=== PATIENT | male | born 1975 | race Two or more races ===

== ENCOUNTER 2020-02-06 09:39 | Inpatient (IN) | payer OTHER ==
--- NOTE | 2020-02-06 09:59 | BHS.RME ---
Substance Use & Tx History - Substance Use History Alcohol Substance amount: 05/26 Vodka Frequency of use: Daily Substance route: Oral Date of Last Use: 02/05/20 Marijuana/Hashish Substance amount: one blunt Frequency of use: Daily Substance route: Smoking Date of Last Use: 02/05/20 Nicotine Substance amount: one pack Frequency of use: Daily Substance route: Smoking Date of Last Use: 02/06/20 Physical/Psych/Mental Status - Behavior General Behavior: Increased activity (restlessness, agitation) Eye Contact: Normal - Cooperativeness Cooperativeness: Cooperative - Thinking Thought Processes: Tight Thought content: Future oriented - Physical Health Problems Is patient presently having any pain?: No Does patient presently have any injuries (include location): No Does patient currently have a fever: No CIWA Nausea/Vomitin Muscle Tremors: 3 Anxiety: 3 Agitation: 1-Slight > Activity Paroxysmal Sweats: 3 Orientation: 0-Oriented Tacttile Disturbances: 0-None Auditory Disturbances: 0-None Visual Disturbances: 0-None Headache: 0-None Present CIWA-Ar Total Score: 12
[2020-02-06 10:22] VITALS: BMI 18.7
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
[2020-02-06] MEDS ORDERED: ACETAMINOPHEN 325 MG TABLET (FP) PO PRN ×2 (10:37)
[2020-02-06] MEDS ORDERED: MAG HYDROX/AL HYDROX/SIMETH 30 ML UNIT-DOSE CUP PO PRN (10:37)
[2020-02-06] MEDS ORDERED: MENTHOL/PHENOL 1 EACH UD MM PRN (10:37)
[2020-02-06] MEDS ORDERED: BISMUTH SUBSALICYLATE 262 MG/15 ML BTL PO PRN (10:37)
[2020-02-06] MEDS ORDERED: METHOCARBAMOL 500 MG TABLET PO PRN (10:37)
[2020-02-06] MEDS ORDERED: chlordiazePOXIDE HCL 25 MG CAPSULE PO PRN (10:37)
[2020-02-06] MEDS ORDERED: MAGNESIUM HYDROX 2400MG/30ML ORAL SUSPENSION 30 ML CUP PO PRN (10:37)
[2020-02-06] MEDS ORDERED: MAGNESIUM CITRATE 300 ML BOTTLE PO PRN (10:37)
[2020-02-06] MEDS ORDERED: NICOTINE POLACRILEX 2 MG GUM BUC PRN (10:37)
[2020-02-06] MEDS ORDERED: IBUPROFEN 400 MG TABLET (FP) PO PRN (10:37)
[2020-02-06] MEDS ORDERED: ONDANSETRON *ODT* 4 MG TABLET SL PRN (10:37)
--- OUTSIDE RECORDS SUMMARY | 2020-02-06 10:39 | XMS ---
:1975 Author Organization [facility] Support Name Relationship Address Phone UE Unavailable Unavailable Unavailable RADHA GIRARD [address] [phone] [place] [address] Malik Santiago Unavailable Unavailable Unavailable Re-disclosure Warning The records that you are about to access may contain information from federally- assisted alcohol or drug abuse programs. If such information is present, then the following federally mandated warning applies: This information has been disclosed to you from records protected by federal confidentiality rules (42 CFR part 2). The federal rules prohibit you from making any further disclosure of this information unless further disclosure is expressly permitted by the written consent of the person to whom it pertains or as otherwise permitted by 42 CFR part 2. A general authorization for the release of medical or other information is NOT sufficient for this purpose. The Federal rules restrict any use of the information to criminally investigate or prosecute any alcohol or drug abuse patient.The records that you are about to access may contain highly sensitive health information, the redisclosure of which is protected by Article 27-F of the [facility] Public Health law. If you continue you may haveaccess to information: Regarding HIV / AIDS; Provided by facilities licensed or operated by the [facility] Office of Mental Health; or Provided by the [facility] Office for People With Developmental Disabilities. If such information is present, then the following [facility] mandated warning applies: This information has been disclosed to you from confidential records which are protected by state law. State law prohibits you from making any further disclosure of this information without the specific written consent of the person to whom it pertains, or as otherwise permitted by law. Any unauthorized further disclosure in violation of state law may result in a fine or shelter sentence or both. A general authorization for the release of medical or other information is NOT sufficient authorization for further disclosure. Allergies and Adverse Reactions Type Description Substance Reaction Status Data Source(s ) Drug allergy Penicillin G Drug allergy anaphylaxis Active eCW3 ([facility]) Drug allergy Penicillin G Drug allergy anaphylaxis Active eCW3 ([facility]) Drug allergy Penicillin G Drug allergy anaphylaxis Active eCW3 ([facility]) Drug allergy Penicillin G Drug allergy anaphylaxis Active eCW3 ([facility]) Drug allergy Penicillin G Drug allergy anaphylaxis Active eCW3 ([facility]) Encounters Encounter Providers Location Date Indications Data Source(s ) Outpatient [facility] 02/06/2019 eCW3 ([facility] 12:00:00 AM [facility] - [facility]) 02/06/2019 12:00:00 AM EDT Est [id number] [facility] 01/23/2019 eCW 3 ([facility] A28 12:00:00 AM [facility] EDT - Care) 01/23/2019 12:00:00 AM EDT (-Nursing) [facility] 01/23/2019 eCW3 ([facility] A28 12:00:00 AM [facility] EDT - Care) 01/23/2019 12:00:00 AM EDT Outpatient [facility] 08/16/2018 eCW3 ([facility] 12:00:00 AM [facility] - [facility]) 08/16/2018 12:00:00 AM EDT Outpatient [facility] 08/02/2018 eCW3 ([facility] A28 12:00:00 AM [facility] - [facility]) 08/02/2018 12:00:00 AM EDT Medications Medication Brand Start Product Dose Route Administrative Pharmacy [facility] Indications Reaction Description Data Name Date Form Instructions Instructions Source(s) Ergocalcife UNK .0 active Ergocalci shay eCW3 rol 1999 2018 {caps ol 2000 UNIT ([facility] UNIT 12:00: ule} [facility] 00 [facility] EDT Care) Ergocalcife UNK .0 active Ergocalci shay eCW3 rol 1999 2018 {caps ol 2000 UNIT ([facility] UNIT 12:00: ule} [facility] 00 AM [facility] EDT Care) Naltrexone Vivitr 4.0 active Vivitrol 3 80 eCW3 112 MG/ML ol 380 {ml} MG ([place] Injectable MG [facility] Suspension [facility] [Vivitrol] Care) Vivitrol 380 MG Naltrexone Vivitr 4.0 active Vivitrol 3 80 eCW3 112 MG/ML ol 380 {ml} MG ([place] Injectable MG [facility] [Vivitrol] Care) Vivitrol 380 MG Multivitami Multiv 1.0 active Multivita min eCW3 n Adult - itamin {tabl Adult - ([facility] Adult et} [facility] - Health Care) Paroxetine Paxil 1.0 active Paxil 20 MG eCW3 20 MG Oral 20 MG {tabl ([place] Tablet et_in [facility] [Paxil] _the_ Health Paxil 20 MG morni Care) ng} Ergocalcife Ergoca 1.0 active Ergocalci shay eCW3 rol 88976 lcifer {[place] [address] ([facility] [place] UNT Oral ol ule} UNIT [facility] Capsule 73668 Health Ergocalcife UNIT Care) rol 28255 UNIT Lurasidone Latuda 2.0 active Latuda 20 MG eCW3 Hydrochlori 20 MG {tabl ([place] de 20 MG ets_w [facility] Oral Tablet ith_f Health [Latuda] ood} Care) Latuda 20 MG Naltrexone Vivitr 4.0 active Vivitrol 3 80 eCW3 112 MG/ML ol 380 {ml} MG ([place] Injectable MG [facility] Susp[facility] [Vivitrol] Care) Vivitrol 380 MG Lurasidone Latuda 2.0 active Latuda 20 MG eCW3 Hydrochlori 20 MG {tabl ([place] de 20 MG ets_w [facility] Oral Tablet ith_f Health [Latuda] ood} Care) Latuda 20 MG Paroxetine Paxil 1.0 active Paxil 20 MG eCW3 20 MG Oral 20 MG {tabl ([place] Tablet et_in [facility] [Paxil] _the_ Health Paxil 20 MG morni Care) ng} Paroxetine Paxil 1.0 active Paxil 20 MG eCW3 20 MG Oral 20 MG {tabl ([place] Tablet et_in [facility] [Paxil] _the_ Health Paxil 20 MG morni Care) ng} Naltrexone Vivitr 4.0 active Vivitrol 3 80 eCW3 112 MG/ML ol 380 {ml} MG ([place] Injectable MG [facility] [Vivitrol] Care) Vivitrol 380 MG Daily Multi Daily active Daily Mult i eCW3 - Multi - ([facility]) Multivitami UNK active Multivitami n eCW3 n 1 1 ([facility]) Paroxetine Paxil 1.0 suspend Paxil 20 M G eCW3 20 MG Oral 20 MG {tabl ed ([place] Tablet et_in [facility] [Paxil] _the_ [facility] Paxil 20 MG morni Care) ng} Ergocalcife Ergoca 1.0 active Ergocalci shay eCW3 rol 41296 lcifer {[place] [address] ([facility] [place] UNT Oral ol ule} UNIT [facility] Capsule 63432 Health Ergocalcife UNIT Care) rol 60182 UNIT Multivitami Multiv 1.0 active Multivita min eCW3 n Adult - itamin {tabl Adult - ([facility] Adult et} [facility]) Multivitami UNK active Multivitami n eCW3 n 1 1 ([facility]) Multivitami Multiv 1.0 active Multivita min eCW3 n Adult - itamin {tabl Adult - ([facility] Adult et} [facility]) Daily Multi Daily active Daily Mult i eCW3 - Multi - ([facility]) Paroxetine Paxil 1.0 active Paxil 20 MG eCW3 20 MG Oral 20 MG {tabl ([place] Tablet et_in [facility] [Paxil] _the_ Health Paxil 20 MG morni Care) ng} Naltrexone Vivitr 4.0 active Vivitrol 3 80 eCW3 112 MG/ML ol 380 {ml} MG ([place] Injectable MG [place] Sus[facility]ension [facility] [Vivitrol] Care) Vivitrol 380 MG Naltrexone Vivitr 4.0 active Vivitrol 3 80 eCW3 112 MG/ML ol 380 {ml} MG ([place] Injectable MG [facility] [Vivitrol] Care) Vivitrol 380 MG Insurance Providers Payer name Policy type Policy ID Covered Covered libertarian's Policy P simran / Coverage libertarian ID relationship to [employer] Inf ormation type cantor BEACON [id number] SP [id number] [employer] Problems, Conditions, and Diagnoses Code Display Name Description Problem Type Effective Dates Data Source(s) F10.10 Alcohol abuse Alcohol abuse Problem 09/04/2019 eCW3 ([facility] 12:00:00 AM EDT [facility]) R76.12 Positive Positive Problem 05/29/2019 eCW3 ([place] QuantiFERON-TB QuantiFERON-TB 12:00:00 AM EST [facility] Gold test Gold test Care) 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 ([place] recurrent major recurrent major 12:00:00 AM [facility] depressive depressive Care) disorder, with disorder, with psychotic psychotic features features F33.3 Major depressive Major depressive Problem 04/01/2019 eC W3 ([place] disorder, disorder, 12:00:00 AM [facility] recurrent, severe recurrent, severe Care) with psychotic with psychotic symptoms symptoms Z72.0 Tobacco abuse Tobacco abuse Problem 01/23/2019 eCW3 ([facility] 12:00:00 AM [facility] Care) F12.10 Cannabis abuse Cannabis abuse Problem 01/23/2019 eCW3 ( [place] 12:00:00 AM [facility] Care) F10.11 Mild alcohol Mild alcohol Problem 01/23/2019 eCW3 ([place] abuse in early abuse [facility] 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 ([place] recurrent major recurrent major 12:00:00 AM [facility] depressive Care) disorder, with disorder, with psychotic psychotic features features F10.11 Mild alcohol Mild alcohol Problem 01/23/2019 eCW3 ([place] abuse in early abuse in early [facility] F12.10 Cannabis abuse Cannabis abuse Problem 01/23/2019 eCW3 ( [place] 12:00:00 AM [facility] Care) Z72.0 Tobacco abuse Tobacco abuse Problem 01/23/2019 eCW3 ([facility] 12:00:00 AM [facility] Care) F10.10 ETOH abuse ETOH abuse Problem 09/15/2017 eCW3 ([place] 12:00:00 AM [facility] Care) F10.10 ETOH abuse ETOH abuse Problem 09/15/2017 eCW3 ([place] 12:00:00 AM [facility] Care) F10.10 ETOH abuse ETOH abuse Problem 09/15/2017 eCW3 ([place] 12:00:00 AM [facility] Care) E55.9 Vitamin D Vitamin D Problem 09/28/2015 eCW3 ([place] deficiency deficiency 12:00:00 AM [facility] Care) E55.9 Vitamin D Vitamin D Problem 09/28/2015 eCW3 ([place] deficiency deficiency 12:00:00 AM [facility] Care) F32.9 Depression Depression Problem 09/21/2015 eCW3 ([place] 12:00:00 AM [facility] Care) Z68.1 BMI less than BMI less than Problem 09/21/2015 eCW3 ([facility] 19,adult 19,adult 12:00:00 AM [facility] Care) R63.0 Loss of appetite Loss of appetite Problem 09/21/2015 eC W3 ([place] 12:00:00 AM [facility] Care) F17.200 Smoking Smoking Problem 09/21/2015 eCW3 ([place] 12:00:00 AM [facility] Care) M25.512 Shoulder pain Left shoulder Problem 09/21/2015 eCW3 ([facility] pain 12:00:00 AM [facility] Care) R63.0 Loss of appetite Loss of appetite Problem 09/21/2015 eC W3 ([place] 12:00:00 AM [facility] Care) Z68.1 BMI less than BMI less than Problem 09/21/2015 eCW3 ([facility] 19,adult 19,adult 12:00:00 AM [facility] Care) F32.9 Depression Depression Problem 09/21/2015 eCW3 ([place] 12:00:00 AM [facility] Care) F17.200 Smoking Smoking Problem 09/21/2015 eCW3 ([place] 12:00:00 AM [facility] Care) R63.0 Loss of appetite Loss of appetite Problem 09/21/2015 eC W3 ([place] 12:00:00 AM [facility] Care) F32.9 Depression Depression Problem 09/21/2015 eCW3 ([place] 12:00:00 AM EDT [facility]) M25.512 Shoulder pain Left shoulder Problem 09/21/2015 eCW3 ([place] [facility] pain 12:00:00 AM [facility]) F17.200 Smoking Smoking Problem 09/21/2015 eCW3 ([place] 12:00:00 AM [facility]) Z68.1 BMI less than BMI less than Problem 09/21/2015 eCW3 ([facility] 19,adult 19,adult 12:00:00 AM [facility]) Surgeries/Procedures Procedure Description Date Indications Data Source(s) BEHAV CHNG SMOKING >10 08/16/2018 eCW3 ([place] MIN 12:00:00 AM [facility]) BEHAV CHNG SMOKING >10 08/02/2018 eCW3 ([place] MIN 12:00:00 AM [facility]) Results ID Date Data Source Vitamin D, 25- [place] Hydroxy 08/03/2018 09:05:44 AM EDT [facility]CW[facility][id number] Care) Name Value Range Interpretation Code Description Data Supporting Source(s) Document(s ) 25-Hydroxyv 37.0 Vitamin D, eCW3 ([place] itamin 25-Hydroxy [facility] D2+25-[place] Care) xyvitamin D3 [Mass/volum e] in Serum or Plasma Procedure Social History Code Duration Value Status Description Data Source(s ) Smoking 06/12/2019 Current Smoker completed Current Smoker eCW3 ( [place] 12:00:00 AM [facility]) Smoking 06/12/2019 Current Smoker completed Current Smoker eCW3 ( [place] 12:00:00 AM [facility]) Smoking 06/12/2019 Current Smoker completed Current Smoker eCW3 ( [place] 12:00:00 AM [facility]) Smoking 01/23/2019 Current Smoker completed Current Smoker eCW3 ( [place] 12:00:00 AM [facility]) Current Smoker completed Current Smoker eCW3 ( [facility]) Current Smoker completed Current Smoker eCW3 ( [facility]) Current Smoker completed Current Smoker eCW3 ( [facility]) Current Smoker completed Current Smoker eCW3 ( [facility]) Smoking Unknown if ever completed Unknown if ever eCW3 ([facility]) Vital Signs ID Date Data Source UNK Name Value Range Interpretation Code Description Data Source(s) Diastolic blood 82 mm[Hg] 82 mm[Hg] eCW3 ([facility]) Systolic blood 134 mm[Hg] 134 mm[Hg] eCW3 ([facility]) Body temperature 97.4 [degF] 97.4 [degF] eCW3 ( [facility]) Heart rate 18 /min 18 /min eCW3 ([facility]) Body mass index 19.49 kg/m2 19.49 kg/m2 eCW3 ([facility] (BMI) [Ratio] [facility]) Body weight 132 [lb_av] 132 [lb_av] eCW3 ([facility]) Body height [in_i] eCW3 ([facility]) Diastolic blood 88 mm[Hg] 88 mm[Hg] eCW3 ([facility]) Systolic blood 131 mm[Hg] 131 mm[Hg] eCW3 ([facility]) Body temperature 97.9 [degF] 97.9 [degF] eCW3 ( [facility]) Heart rate 18 /min 18 /min eCW3 ([facility]) Body mass index 19.49 kg/m2 19.49 kg/m2 eCW3 ([facility] (BMI) [Ratio] [facility]) Body weight 132 [lb_av] 132 [lb_av] eCW3 ([facility]) Body height [in_i] eCW3 ([facility]) Patient Treatment Plan of Care Planned Activity Planned Date Details Description Data Source (s) Ergocalciferol 2000 UNIT 08/16/2018 12:00:00 eCW3 ([facility]) Paroxetine 20 MG Oral eCW3 ( [facility] Tablet [Paxil] [facility]) Naltrexone 112 MG/ML eCW3 ([facility] Injectable Suspension [facility]) [Vivitrol] Multivitamin Adult - eCW3 ([facility]) Naltrexone 112 MG/ML eCW3 ([facility] Injectable Suspension [facility]) [Vivitrol] Paroxetine 20 MG Oral eCW3 ( [facility] Tablet [[facility]] [facility]) Naltrexone 112 MG/ML eCW3 ([facility] Injectable Suspension [facility]) [Vivitrol] Multivitamin Adult - eCW3 ([facility]) Naltrexone 112 MG/ML eCW3 ([facility] Injectable Suspension [facility]) [Vivitrol] Paroxetine 20 MG Oral eCW3 ( [facility] Tablet [[facility]] [facility]) Naltrexone 112 MG/ML eCW3 ([facility] Injectable Suspension [facility]) [Vivitrol] Multivitamin Adult - eCW3 ([facility]) Naltrexone 112 MG/ML eCW3 ([facility] Injectable Suspension [facility]) [Vivitrol]
[2020-02-06] MEDS: NICOTINE 21 MG/24 HOURS TOPICAL PATCH TD SCH (11:18)
[2020-02-06] MEDS: chlordiazePOXIDE HCL 25 MG CAPSULE PO SCH ×3 (11:23→22:26)
--- NOTE | 2020-02-06 12:48 | CONSULT ---
[facility] Psychiatric Consult - Data Date of interview: 02/06/20 Admission source: [facility], [place], [place] Identifying data: Mr Robertson is a 44 years old Black male, father of a 4 years old son, unemployed receiving SSI, domiciled living with his , seeking detox treatment for alcohol and cannabis Substance Abuse History: Reports history of alcohol and marijuana use. Refer to addiction counselor's summary for further information Medical History: Unremarkable. Smokes cigarettes 1 ppd Psychiatric History: Thisis patient's first psychiatric admission to this facility. He reports that his first psychiatric contact occured in 1995 when he was admitted to [facility], diagnosed with MDD and started on psychotropic medications. Reports that he has been adherent to outpatient psychiatric treatment since. Reports that he currently receives outpatient psychiatric tretment at [facility] in the [place] and he is prescribed Paxil 20 mg/day. Medication confirmed by contacting [phone]. According to pharmacy staff, script for Paxil 20 mg.day was filled on . Reports 2 previous suicidal attempts both via self- mutilation. At present, he is very irritable, reports feeling depressed and sleeping poorly. Requests to continue Paxil as prescribed Physical/Sexual Abuse/Trauma History: Denies history of abuse as a child or DV relationship as an adult Mental Status Exam - Mental Status Exam Alert and Oriented to: Place, Person Patient Appearance: Disheveled Mood: Depressed, Irritable Patient Behavior: Cooperative Speech Pattern: Clear Voice Loudness: Normal Thought Process: Intact, Goal Oriented Thought Disorder: Not Present Hallucinations: Denies Suicidal Ideation: Denies Homicidal Ideation: Denies Insight/Judgement: Poor Sleep: Poorly Appetite: Poor Muscle strength/Tone: Normal Gait/Station: Normal Psychiatric Findings - Problem List ([place] 1, 2,3) (1) MDD (major depressive disorder) Current Visit: Yes Status: Chronic (2) Substance induced mood disorder Current Visit: Yes Status: Acute (3) Substance-induced sleep disorder Current Visit: Yes Status: Acute (4) Alcohol dependence with uncomplicated withdrawal Current Visit: No Status: Acute Comment: 1. Admit, alcohol detox protocol 2. Routine labs 3. Counseling: substance use disorder (5) Cannabis dependence, uncomplicated Current Visit: No Status: Acute Comment: 1. Education: substance use disorder (6) Nicotine dependence Current Visit: Yes Status: Chronic Qualifiers: Nicotine product type: cigarettes Substance use status: uncomplicated Qualified Code(s): F17.210 - Nicotine dependence, cigarettes, uncomplicated Comment: 1. Nicotine replacement therapy - Initial Treatment Plan Initial Treatment Plan: 1) Continue Paxil 20 mg po daily. 2) Continue inpatient detoxification
[2020-02-06] MEDS: PARoxetine HCL 20 MG TABLET PO SCH (15:00)
[2020-02-06] MEDS: hydrOXYzine PAMOATE 25 MG CAPSULE (FP) PO SCH ×3 (15:00→22:26)
[2020-02-06 15:22] LABS: HEMATOCRIT 51.1 % (35.4-49); HEMOGLOBIN 16.8 GM/dL (11.7-16.9); MCH 29.9 pg (25.7-33.7); MCHC 32.9 g/dl (32.0-35.9); MEAN CELL VOLUME 90.9 fl (80-96); MEAN PLT VOLUME 8.7 fl (7.5-11.1); PLATELET COUNT 185 K/MM3 (134-434); RBC 5.62 M/mm3 (4.00-5.60); RDW 14.8 % (11.9-15.9); WHITE BLOOD COUNT 8.1 K/mm3 (4.0-10.0)
[2020-02-06 15:42] LABS: ALBUMIN 3.8 g/dl (3.4-5.0); BILIRUBIN,TOTAL 1.1 mg/dL (0.2-1); BLOOD UREA NITROGEN 16.2 mg/dL (7-18); CREATININE 0.8 mg/dL (0.55-1.3); TOT PROT 6.8 g/dl (6.4-8.2)
[2020-02-06 15:45] LABS: POTASSIUM 2.8 mmol/L (3.5-5.1)
--- NOTE | 2020-02-06 16:21 | PN ---
[facility] Progress Note Note: call from nurse re : critical lab value Laboratory 02/06/20 02/06/20 02/06/20 10:55 10:55 10:55 WBC 8.1 K/mm3 K/mm3 (4.0-10.0) RBC 5.62 M/mm3 H M/mm3 (4.00-5.60) Hgb 16.8 GM/dL GM/dL (11.7-16.9) Hct 51.1 % H % (35.4-49) MCV 90.9 fl fl (80-96) MCH 29.9 pg pg (25.7-33.7) MCHC 32.9 g/dl g/dl (32.0-35.9) RDW 14.8 % % (11.9-15.9) Plt Count 185 K/MM3 D K/MM3 (134-434) MPV 8.7 fl fl (7.5-11.1) Sodium 140 mmol/L mmol/L (136-145) Potassium 2.8 mmol/L L* mmol/L (3.5-5.1) Chloride 96 mmol/L L mmol/L (98-107) Carbon Dioxide 34 mmol/L H mmol/L (21-32) Anion Gap 11 MMOL/L MMOL/L (8-16) BUN 16.2 mg/dL mg/dL (7-18) Creatinine 0.8 mg/dL mg/dL (0.55-1.3) Est GFR (CKD-EPI)AfAm 125.92 Est GFR (CKD-EPI)NonAf 108.65 Random Glucose 104 mg/dL mg/dL (74-106) Calcium 9.0 mg/dL mg/dL (8.5-10.1) Total Bilirubin 1.1 mg/dL H mg/dL (0.2-1) AST 162 U/L H U/L (15-37) ALT 112 U/L H U/L (13-61) Alkaline Phosphatase 97 U/L U/L (45-117) Total Protein 6.8 g/dl g/dl (6.4-8.2) Albumin 3.8 g/dl g/dl (3.4-5.0) Syphilis Serology Non-reactive (NONREACTIVE) Plan : K supplementation 40 mEq x once
[2020-02-06] MEDS ORDERED: POTASSIUM CHLORIDE TABS 20 MEQ TABLET.ER (FP) PO ONE (16:22)
[2020-02-06] MEDS ORDERED: THIAMINE HCL 100 MG TABLET (FP) PO SCH (22:00)
[2020-02-06] MEDS ORDERED: MELATONIN 5 MG TABLETS PO SCH (22:00)
[2020-02-07] MEDS: hydrOXYzine PAMOATE 25 MG CAPSULE (FP) PO SCH ×2 (06:30→10:11)
[2020-02-07] MEDS: chlordiazePOXIDE HCL 25 MG CAPSULE PO SCH ×2 (06:32→10:11)
[2020-02-07] MEDS ORDERED: PRENATAL VITAMINS W/ FOLIC ACID TABLET (FP) PO SCH (10:00)
[2020-02-07] MEDS: NICOTINE 21 MG/24 HOURS TOPICAL PATCH TD SCH (10:11)
[2020-02-07] MEDS: PARoxetine HCL 20 MG TABLET PO SCH (10:12)
[2020-02-07] MEDS ORDERED: hydrOXYzine PAMOATE 25 MG CAPSULE (FP) PO PRN (11:20)
--- NOTE | 2020-02-07 11:34 | PN ---
S CIWA - CIWA Score Nausea/Vomitin-No Nausea/No Vomiting Muscle Tremors: 3 Anxiety: 3 Agitation: 3 Paroxysmal Sweats: 2 Orientation: 0-Oriented Tacttile Disturbances: 0-None Auditory Disturbances: 0-None Visual Disturbances: 0-None Headache: 0-None Present CIWA-Ar Total Score: 11 S Progress Note (SOAP) Subjective: nausea sweats shakes body aches interrupted sleep Objective: 02/07/20 11:29 Vital Signs Temperature 97.1 F L 02/07/20 06:59 Pulse Rate 87 02/07/20 06:59 Respiratory Rate 18 02/07/20 06:59 Blood Pressure 139/99 02/07/20 06:59 O2 Sat by Pulse Oximetry (%) 93 L 02/07/20 06:59 Laboratory Tests 02/06/20 02/06/20 02/06/20 10:55 10:55 10:55 WBC 8.1 RBC 5.62 H Hgb 16.8 Hct 51.1 H MCV 90.9 MCH 29.9 MCHC 32.9 RDW 14.8 Plt Count 185 D MPV 8.7 Sodium 140 Potassium 2.8 L* Chloride 96 L Carbon Dioxide 34 H Anion Gap 11 BUN 16.2 Creatinine 0.8 Est GFR (CKD-EPI)AfAm 125.92 Est GFR (CKD-EPI)NonAf 108.65 Random Glucose 104 Calcium 9.0 Total Bilirubin 1.1 H AST 162 H ALT 112 H Alkaline Phosphatase 97 Total Protein 6.8 Albumin 3.8 Syphilis Serology COVID-19 ([facility]) HIV Ag/Ab Combo Qual Negative 02/06/20 02/06/20 02/07/20 10:55 10:55 08:00 WBC RBC Hgb Hct MCV MCH MCHC RDW Plt Count MPV Sodium Potassium 2.8 L* Chloride Carbon Dioxide Anion Gap BUN Creatinine Est GFR (CKD-EPI)AfAm Est GFR (CKD-EPI)NonAf Random Glucose Calcium Total Bilirubin AST ALT Alkaline Phosphatase Total Protein Albumin Syphilis Serology Non-reactive COVID-19 ([facility]) Not detected HIV Ag/Ab Combo Qual potassium 2.8 noted elevated liver enzymes aaox3 ambulating no acute distress Assessment: 02/07/20 11:33 withdrawals Plan: continue detox kcl 40meq QID x 3 doses ordered tylenol d/c labs repeated increase fluids
[2020-02-07 13:12] VITALS: BP 136/93; PULSE 95; TEMP 98.4
[2020-02-07] MEDS ORDERED: POTASSIUM CHLORIDE ORAL LIQUID 20 MEQ/15 ML PO SCH (14:00)
--- NOTE | 2020-02-07 15:12 | PN ---
[facility] Progress Note Note: pt states I want to go home. Pt was explained the risks of relapse, his purpose for his admission to detox and risk of seizure, DT, OD and or loss. Pt along with all disciplines (nursing, counseling, and medical provider) spoke with patient to explain and try to have pt stay and complete his detox. Pt was also explained that his potassium is low and currently was prescribed KCL to help increase his potassium, pt shrugged his shoulders and states I don't care. Pt was told potassium supplement will be sent to his pharmacy on file so he can complete his regimen. pt walked away. pt chose to sign out AMA.
--- NOTE | 2020-02-07 15:19 | DS ---
[facility] Detox Discharge Summary Admission Date: 02/06/20 - History Present History: Alcohol Dependence, Cannabis Dependence - Physical Exam Results Vital Signs: Vital Signs Temperature 98.4 F 02/07/20 12:33 Pulse Rate 95 H 02/07/20 12:33 Respiratory Rate 16 02/07/20 12:33 Blood Pressure 136/93 02/07/20 12:33 O2 Sat by Pulse Oximetry (%) 93 L 02/07/20 12:33 Pertinent Admission Physical Exam Findings: Vital Signs Temperature 98.4 F 02/07/20 12:33 Pulse Rate 95 H 02/07/20 12:33 Respiratory Rate 16 02/07/20 12:33 Blood Pressure 136/93 02/07/20 12:33 O2 Sat by Pulse Oximetry (%) 93 L 02/07/20 12:33 Laboratory Tests 02/06/20 02/06/20 02/06/20 10:55 10:55 10:55 WBC 8.1 RBC 5.62 H Hgb 16.8 Hct 51.1 H MCV 90.9 MCH 29.9 MCHC 32.9 RDW 14.8 Plt Count 185 D MPV 8.7 Sodium 140 Potassium 2.8 L* Chloride 96 L Carbon Dioxide 34 H Anion Gap 11 BUN 16.2 Creatinine 0.8 Est GFR (CKD-EPI)AfAm 125.92 Est GFR (CKD-EPI)NonAf 108.65 Random Glucose 104 Calcium 9.0 Total Bilirubin 1.1 H AST 162 H ALT 112 H Alkaline Phosphatase 97 Total Protein 6.8 Albumin 3.8 Syphilis Serology COVID-19 ([facility]) HIV Ag/Ab Combo Qual Negative 02/06/20 02/06/20 02/07/20 10:55 10:55 08:00 WBC RBC Hgb Hct MCV MCH MCHC RDW Plt Count MPV Sodium Potassium 2.8 L* Chloride Carbon Dioxide Anion Gap BUN Creatinine Est GFR (CKD-EPI)AfAm Est GFR (CKD-EPI)NonAf Random Glucose Calcium Total Bilirubin AST ALT Alkaline Phosphatase Total Protein Albumin Syphilis Serology Non-reactive COVID-19 ([facility]) Not detected HIV Ag/Ab Combo Qual [id number] ambulating pt was ordered kdur supplement for 2.8 potassium. pt took two doses thus far. however, pt signed out AMA and Rx sent to his pharmacy to complete his regimen. - Treatment Hospital Course: Rehab Referral Accepted - Medication Discharge Medications: Ambulatory Orders Paroxetine HCl [Paxil -] 25 mg PO DAILY 02/06/20 Potassium Chloride [K-Dur -] 40 meq PO ONCE #5 tablet.er 02/07/20 - Diagnosis (1) Depression Current Visit: Yes Status: Acute (2) Substance induced mood disorder Current Visit: Yes Status: Acute (3) Substance-induced sleep disorder Current Visit: Yes Status: Acute (4) MDD (major depressive disorder) Current Visit: Yes Status: Chronic (5) Nicotine dependence Current Visit: Yes Status: Chronic Qualifiers: Nicotine product type: cigarettes Substance use status: uncomplicated Qualified Code(s): F17.210 - Nicotine dependence, cigarettes, uncomplicated (6) Alcohol dependence with uncomplicated withdrawal Current Visit: No Status: Acute (7) Cannabis dependence, uncomplicated Current Visit: No Status: Acute (8) History of anemia Current Visit: No Status: Suspected (9) Hx of hypercholesterolemia Current Visit: No Status: Suspected (10) Hypokalemia Current Visit: Yes Status: Acute - AMA Did Patient Leave Against Medical Advice: Yes
[2020-02-08] MEDS ORDERED: chlordiazePOXIDE HCL 25 MG CAPSULE PO SCH (05:00)
[2020-02-09] MEDS ORDERED: chlordiazePOXIDE HCL 10 MG CAPSULE PO PRN
[2020-02-09] MEDS ORDERED: chlordiazePOXIDE HCL 10 MG CAPSULE PO SCH (05:00)
[2020-02-10] MEDS ORDERED: chlordiazePOXIDE HCL 10 MG CAPSULE PO SCH (05:00)
[2020-02-11] MEDS ORDERED: chlordiazePOXIDE HCL 10 MG CAPSULE PO ONE (05:00)
== END 2020-02-07 15:30 | disposition left against medical advice (07) | DRG 770 ==
LOC: YASAS 09:39 → Y6N 10:35
PROVIDERS: ADMIT Allergy & Immunology; ATTEND Allergy & Immunology
PROC: HZ2ZZZZ Detoxification Services for Substance Abuse Treatment (ICD-10-PCS; principal; 2020-02-06)
DX: F10.230 Alcohol dependence with withdrawal, uncomplicated (principal); F12.20 Cannabis dependence, uncomplicated; F17.210 Nicotine dependence, cigarettes, uncomplicated; F19.282 Other psychoactive substance dependence with psychoactive substance-induced sleep disorder; F19.24 Other psychoactive substance dependence with psychoactive substance-induced mood disorder; F32.9 Major depressive disorder, single episode, unspecified; E87.6 Hypokalemia; R74.8 Abnormal levels of other serum enzymes; Z86.39 Personal history of other endocrine, nutritional and metabolic disease; Z86.2 Personal history of diseases of the blood and blood-forming organs and certain disorders involving the immune mechanism; Z88.0 Allergy status to penicillin
CPT/HCPCS: 36415; 80053; 84132; 85027; 86780; 87389; U0003

== ENCOUNTER 2020-05-27 13:41 | Emergency (ER) | payer OTHER ==
[2020-05-27 14:03] VITALS: PULSE 79; TEMP 97.5; BMI 27.3
[2020-05-27 14:13] VITALS: BP 120/49
== END 2020-05-27 17:38 | disposition home or self-care (01) ==
LOC: JER 13:41
DX: F10.920 Alcohol use, unspecified with intoxication, uncomplicated (principal)
CPT/HCPCS: 99283-25

== ENCOUNTER 2024-07-11 19:18 | Observation (INO) | payer OTHER ==
[2024-07-11 19:49] VITALS: BMI 22.8
[2024-07-11 21:13] LABS: BASO % 2.3 % (0-2.0); EOS % 0.5 % (0-4.5); HEMOGLOBIN 11.4 GM/dL (11.7-16.9); LYMPH % 28.5 % (8-40); MCH 24.4 pg (25.7-33.7); MCHC 31.8 g/dl (32.0-35.9); MEAN CELL VOLUME 76.9 fl (80-96); MEAN PLT VOLUME 8.3 fl (7.5-11.1); MONO % 12.3 % (3.8-10.2); NEUT % 56.4 % (42.8-82.8); PLATELET COUNT 132 10^3/uL (134-434); RBC 4.68 M/mm3 (4.00-5.60); RDW 22.6 % (11.9-15.9); WHITE BLOOD COUNT 4.5 K/mm3 (4.0-10.0)
[2024-07-11 21:15] LABS: EPI CELLS 4 /uL (0-25.1); HYALINE CASTS 0 /uL (0-3.1); PH,URINE 8.5 (5.0-8.0); URINE APPEARANCE CLEAR; URINE BACTERIA 3 /uL (0-1359); URINE BILIRUBIN NEGATIVE (NEGATIVE); URINE COLOR YELLOW; URINE GLUCOSE (UA) NEGATIVE (NEGATIVE); URINE KETONE NEGATIVE (NEGATIVE); URINE LEUK ESTERASE NEGATIVE (NEGATIVE); URINE NITRITE NEGATIVE (NEGATIVE); URINE PROTEIN 1+ (NEGATIVE); URINE RBC 38 /uL (0-23.9); URINE WBC 15 /uL (0-25.8)
[2024-07-11 21:29] LABS: POTASSIUM 3.5 mmol/L (3.5-5.1)
[2024-07-11 21:31] LABS: CALCIUM 9.3 mg/dL (8.5-10.1)
[2024-07-11 21:32] LABS: ALBUMIN 3.8 g/dl (3.4-5.0); BLOOD UREA NITROGEN 10.6 mg/dL (7-18)
[2024-07-11 21:35] LABS: CREATININE 0.8 mg/dL (0.55-1.3)
[2024-07-11 21:36] LABS: BILIRUBIN,TOTAL 1.1 mg/dL (0.2-1)
[2024-07-11 21:37] LABS: TOT PROT 7.5 g/dl (6.4-8.2)
[2024-07-11 22:04] LABS: PHOSPHOROUS 2.1 mg/dL (2.5-4.9)
[2024-07-11 22:30] LABS: ANISOCYTOSIS 3+; MACROCYTOSIS 2+; TARGET CELLS 1+; TEAR DROP CELLS 1+
[2024-07-11 22:31] LABS: PLATELET ESTIMATE DECREASED
[2024-07-11] MEDS ORDERED: diazePAM CARPU-JECT 10 MG/2 ML DISP.SYRIN ONE (22:59)
[2024-07-11] MEDS: diazePAM 5 MG TABLET PO SCH (23:00)
[2024-07-11] MEDS ORDERED: chlordiazePOXIDE HCL 25 MG CAPSULE ONE (23:00)
[2024-07-11] MEDS: chlordiazePOXIDE HCL 25 MG CAPSULE PO ONE (23:03)
[2024-07-11] MEDS ORDERED: MAGNESIUM SULFATE IN WATER 2 GM/50 ML IVPB IVPB ONE (23:06)
[2024-07-11] MEDS: diazePAM CARPU-JECT 10 MG/2 ML DISP.SYRIN IVPUSH ONE (23:10)
[2024-07-11] MEDS: MAGNESIUM SULFATE IN WATER 2 GM/50 ML IVPB IVPB ONE (23:15)
[2024-07-11] MEDS ORDERED: THIAMINE HCL 200 MG/2 ML VIAL ONE (23:46)
[2024-07-11] MEDS ORDERED: diazePAM 5 MG TABLET PO PRN (23:51)
[2024-07-11] MEDS: THIAMINE HCL 200 MG/2 ML VIAL IVPB ONE (23:54)
[2024-07-12 00:02] LABS: COCAINE, UR NEGATIVE (NEGATIVE); METHADONE, UR NEGATIVE (NEGATIVE); PHENCYCLIDINE,URINE NEGATIVE (NEGATIVE); URINE BARBITURATES NEGATIVE (NEGATIVE)
[2024-07-12 00:04] LABS: OPIATES, URI NEGATIVE (NEGATIVE); URINE AMPHETAMINES NEGATIVE (NEGATIVE); URINE BENZODIAZEPINES POSITIVE (NEGATIVE)
[2024-07-12] MEDS: ACETAMINOPHEN 1000 MG/100 ML BAG IVPB ONE (00:27)
[2024-07-12] MEDS ORDERED: diazePAM 5 MG TABLET ONE ×3 (00:48→11:52)
[2024-07-12] MEDS ORDERED: NAPH,MB-DB/K PH,MBDB POWDER PACKET ONE (00:48)
[2024-07-12] MEDS: NAPH,MB-DB/K PH,MBDB POWDER PACKET PO ONE (00:56)
[2024-07-12] MEDS ORDERED: POTASSIUM PHOSPHATE 15 MM in DEXTROSE 5%-WATER - 100 ML IVPB ONE (01:51)
[2024-07-12] MEDS: POTASSIUM PHOSPHATE 15 MM in DEXTROSE 5%-WATER - 250 ML IVPB ONE (03:10)
[2024-07-12] MEDS: MAGNESIUM CL 64 MG TABLET.SA PO SCH (10:14)
[2024-07-12] MEDS: THIAMINE HCL 200 MG/2 ML VIAL IVPB SCH (10:15)
[2024-07-12 11:36] VITALS: BP 149/97; PULSE 100; RESP 17; TEMP 98.9
[2024-07-12] MEDS ORDERED: PANTOPRAZOLE 40 MG TABLET PO ONE (11:51)
[2024-07-12] MEDS ORDERED: MULTIVITAMINS (DAILY MVI) TABLET (FP) ONE (11:52)
[2024-07-12] MEDS: LACTATED RINGERS SOLUTION 1,000 ML/1,000 ML INFUS.BAG IV SCH (11:57)
[2024-07-12] MEDS: MULTIVITAMINS (DAILY MVI) TABLET (FP) PO SCH (11:57)
[2024-07-12] MEDS: PANTOPRAZOLE 40 MG TABLET PO SCH (11:57)
[2024-07-12] MEDS ORDERED: MAGNESIUM SULFATE IN WATER 2 GM/50 ML IVPB IVPB ONE ×2 (14:18→14:23)
[2024-07-12] MEDS ORDERED: MAGNESIUM OXIDE 400 MG TABLET (FP) ONE (14:23)
[2024-07-12] MEDS: MAGNESIUM SULFATE IN WATER 2 GM/50 ML IVPB IVPB ONE (14:31)
[2024-07-12] MEDS: MAGNESIUM OXIDE 400 MG TABLET (FP) PO ONE (14:31)
[2024-07-13] MEDS ORDERED: diazePAM 5 MG TABLET PO SCH (06:00)
[2024-07-14] MEDS ORDERED: diazePAM 5 MG TABLET PO SCH (06:00)
[2024-07-15] MEDS ORDERED: diazePAM 5 MG TABLET PO ONE (06:00)
== END 2024-07-12 14:53 | disposition other institution (70) ==
LOC: JER 19:18 → JERBED 22:30
PROVIDERS: ADMIT Student in an Organized Health Care Education/Training Program; ATTEND Allergy & Immunology
PROC: 3E033NZ Introduction of Analgesics, Hypnotics, Sedatives into Peripheral Vein, Percutaneous Approach (ICD-10-PCS; principal; 2024-07-11)
PROC: 3E0337Z Introduction of Electrolytic and Water Balance Substance into Peripheral Vein, Percutaneous Approach (ICD-10-PCS; 2024-07-11)
PROC: 3E033GC Introduction of Other Therapeutic Substance into Peripheral Vein, Percutaneous Approach (ICD-10-PCS; 2024-07-11)
DX: F10.939 Alcohol use, unspecified with withdrawal, unspecified (principal); R56.9 Unspecified convulsions; F41.8 Other specified anxiety disorders; D50.9 Iron deficiency anemia, unspecified; E83.42 Hypomagnesemia; K76.9 Liver disease, unspecified; D69.6 Thrombocytopenia, unspecified; F17.210 Nicotine dependence, cigarettes, uncomplicated; Z88.0 Allergy status to penicillin
CPT/HCPCS: 0241U-QW; 36415; 71045-TC-FY; 80053; 80307; 81003; 82140; 82746; 83735; 84100; 84443; 84484; 85025; 87040; 96361; 96365; 96366; 96367; 96375; 99285-25; G0378; J0131